=== PATIENT | female | born 1990 | race African-American/Black ===

== ENCOUNTER 2018-08-07 17:42 | Emergency (ER) | payer MEDICAID ==
[~2018-08-07] VITALS: Ht 154.9 cm; Wt 53.5 kg
[2018-08-07] MEDS ORDERED: ASPIRIN EC325 MG ORAL (17:51)
[2018-08-07] MEDS ORDERED: DOCUSATE SODIU100 MG ORAL (17:51)
[2018-08-07] MEDS ORDERED: ENDOCET 5-3251 EACH ORAL (17:51)
[2018-08-07] MEDS ORDERED: GABAPENTIN100 MG ORAL (17:51)
[2018-08-07 18:00] VITALS: BP 125/46
[2018-08-07] MEDS ORDERED: HYDROcodone/Acetamin 5/325 tab ORAL ONE (18:00)
[2018-08-07] MEDS ORDERED: Bacitracin Oint UD TOPIC ONE (18:45)
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
[2018-08-07] MEDS ORDERED: oxyCODONE HCL/Acetaminophen 5/325mg ORAL ONE (22:15)
[2018-08-07 22:20] LABS: BASOPHILS % (AUTO) 1.7 % (0.0-2.0); EOSINOPHILS % (AUTO) 6.7 % (0.0-3.0); HEMATOCRIT 29.5 % (37.0-47.0); HEMOGLOBIN 9.9 G/DL (12.0-16.0); LYMPHOCYTES % (AUTO) 39.4 % (20.0-45.0); MEAN CORPUSCULAR VOLUME 86 FL (80-99); MONOCYTES % (AUTO) 4.3 % (1.0-10.0); NEUTROPHILS % (AUTO) 47.9 % (45.0-75.0); PLATELET COUNT 453 K/UL (150-450); RED BLOOD COUNT 3.44 M/UL (4.20-5.40); RED CELL DISTRIBUTION WIDTH 11.1 % (11.6-14.8); WHITE BLOOD COUNT 8.1 K/UL (4.8-10.8)
[2018-08-07 22:24] LABS: ANION GAP 9 mmol/L (5-15); BLOOD UREA NITROGEN 7 mg/dL (7-18); CALCIUM 9.7 MG/DL (8.5-10.1); CARBON DIOXIDE 29 MMOL/L (21-32); CHLORIDE 99 MMOL/L (98-107); CREATININE 0.8 MG/DL (0.55-1.30); POTASSIUM 3.9 MMOL/L (3.5-5.1); SODIUM 137 MMOL/L (136-145)
[2018-08-07 22:30] LABS: ALANINE AMINOTRANSFERASE 26 U/L (12-78); ALBUMIN 3.6 G/DL (3.4-5.0); ALBUMIN/GLOBULIN RATIO 0.8 (1.0-2.7); ALKALINE PHOSPHATASE 69 U/L (46-116); ASPARTATE AMINO TRANSFERASE 28 U/L (15-37); BILIRUBIN,TOTAL 0.4 MG/DL (0.2-1.0)
[2018-08-07 22:39] VITALS: BP 125/46
--- NOTE | 2018-08-08 12:55 | Diagnostic Imaging Report ---
Indication: Pain Technique: 2 views of the left tibia and fibula Comparison: none Findings: Overlying splint obscures bony detail. Surgical hardware is seen reducing distal fibular shaft and medial malleolar fracture. Medial malleolar fracture appears well healed. There is a fracture line of the distal fibular shaft. The hardware appears intact. No acute fractures Impression: Postsurgical and posttraumatic changes as described. Note the presence of a fracture line of the distal fibular shaft. This could indicate delayed union, depending on the age of the injury. Correlate with clinical history and findings No definite acute injury. Note limitations of exam, as described
--- NOTE | 2018-08-08 13:10 | Diagnostic Imaging Report ---
APPROVED REPORT CPT Code: 57292 Present Symptoms Comments: RT LEG PAIN AND SWELLING. RIGHT LEG: Venous imaging reveals a patent deep venous system. There is no evidence of thrombus within the femoral, popliteal segments. The greater saphenous vein is also within normal limits. Doppler indicates normal spontaneous flow within these segments.calf area not visualized due to the cast.
== END 2018-08-07 22:40 | disposition home or self-care (01) ==
LOC: EMR 19:20
DX: G89.18 Other acute postprocedural pain (principal); Z88.0 Allergy status to penicillin
CPT/HCPCS: 36415; 80053; 85025; 93971; 99284